=== PATIENT | female | born 1990 | race Caucasian/White ===

== ENCOUNTER 2018-10-27 08:29 | Emergency (ER) | payer MEDICAID ==
--- NOTE | 2018-10-27 10:07 | EDM.PDOC ---
ED HPI GENERAL MEDICAL PROBLEM - General Chief Complaint: PRN PHYSICAL THERAPIST Problem Stated Complaint: WORRIED ABOUT MISCARRIAGE - SPOTTING Time Seen by Provider: 10/27/18 09:18 Source of Information: Reports: Patient History Limitations: Reports: No Limitations - History of Present Illness INITIAL COMMENTS - FREE TEXT/NARRATIVE: Patient presents with abdominal cramping and vaginal bleeding. She is 12 weeks and had an US at 10 weeks confirming intrauterine . Sometime during the night she was up to the bathroom and had cramping that lasted about two minutes. She was able to fall asleep and this morning passed some blood as well as 5 nickel-sized clots of blood. She isn't sure how much there was in the toilet. She says she continues to bleed a little. There is no more cramping or abdominal pain. - Related Data Allergies Allergy/AdvReac Type Severity Reaction Status Date / Time Sulfa (Sulfonamide Allergy Hives Verified 10/27/18 08:57 Antibiotics) Social & Family History - Tobacco Use Smoking Status *Q: Former Smoker Years of Tobacco use: 8 Used Tobacco, but Quit: Yes Month/Year Tobacco Last Used: 07/2019 - Caffeine Use Caffeine Use: Reports: None - Recreational Drug Use Recreational Drug Use: No ED ROS GENERAL - Review of Systems Review Of Systems: See Below Constitutional: Denies: Fever, Chills HEENT: Reports: No Symptoms Respiratory: Denies: Shortness of Breath, Cough Cardiovascular: Denies: Chest Pain, Lightheadedness, Syncope Endocrine: Reports: No Symptoms GI/Abdominal: Denies: Abdominal Pain, Diarrhea, Vomiting : Denies: Dysuria, Flank Pain Musculoskeletal: Reports: No Symptoms Skin: Denies: Cyanosis, Jaundice, Mottled, Pallor, Diaphoresis Neurological: Denies: Confusion, Seizure, Syncope Psychiatric: Denies: Agitation, Anxiety, Confusion Hematologic/Lymphatic: Denies: Anemia ED EXAM - Physical Exam Exam: See Below Exam Limited By: No Limitations General Appearance: Alert, WD/WN, No Apparent Distress Eye Exam: Bilateral Eye: EOMI, Normal Inspection, PERRL Ears: Normal External Exam, Hearing Grossly Normal Nose: Normal Inspection, No Blood Throat/Mouth: Normal Inspection, Normal Lips, Normal Voice, No Airway Compromise Head: Atraumatic, Normocephalic Neck: Normal Inspection, Full Range of Motion Respiratory/Chest: No Respiratory Distress, Lungs Clear, Normal Breath Sounds, No Accessory Muscle Use Cardiovascular: Regular Rate, Rhythm, No Edema, No Murmur GI/Abdominal Exam: Normal Bowel Sounds, Soft, Non-Tender, No Organomegaly, Other (consistent with stated gestation) (Female) Exam: Normal External Exam, Normal Speculum Exam (The vaginal exam was performed by Dr. 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 No: Cervical Dilatation, Cervical Discharge, Products of Conception, Tissue Present in Cervix/Vagina Back Exam: Normal Inspection, Full Range of Motion. No: CVA Tenderness (L), CVA Tenderness (R) Extremities: Normal Inspection, Normal Range of Motion Neurological: Alert, Oriented, Normal Cognition, No Motor/Sensory Deficits Psychiatric: Normal Affect, Normal Mood Skin Exam: Warm, Dry, Intact, Normal Color, No Rash Course - Vital Signs Last Recorded V/S: Last Vital Signs Temp 98.1 F 10/27/18 08:45 Pulse 86 10/27/18 08:45 Resp 16 10/27/18 08:45 BP 128/74 10/27/18 08:45 Pulse Ox 98 10/27/18 08:45 - Orders/Labs/Meds Orders: Active Orders 24 hr Category Date Time Status TYPE AND SCREEN [BBK] Stat Lab 10/27/18 09:55 Ordered Labs: Laboratory Tests 10/27/18 10/27/18 Range/Units 09:05 10:05 WBC 5.62 (5.00-10.00) 10^3/uL RBC 4.61 (3.80-5.50) 10^6/uL Hgb 12.9 (12.0-16.0) g/dL Hct 35.4 L (37.0-47.0) % MCV 76.8 L (82.0-92.0) fL MCH 28.0 (27.0-31.0) pg MCHC 36.4 H (32.0-36.0) g/dL RDW 14.2 (11.5-14.5) % Plt Count 264 (150-400) 10^3/uL MPV 9.2 (7.4-10.4) fL Immature Gran % (Auto) 0.2 (0.0-5.0) % Neut % (Auto) 59.0 (50.0-70.0) % Lymph % (Auto) 32.0 (20.0-40.0) % [place] % (Auto) 8.0 (2.0-8.0) % Eos % (Auto) 0.4 L (1.0-3.0) % Baso % (Auto) 0.4 (0.0-1.0) % Immature Gran # (Auto) 0.01 (0.00-0.50) 10^3/uL Neut # (Auto) 3.32 (2.50-7.00) 10^3/uL Lymph # (Auto) 1.80 (1.00-4.00) 10^3/uL [place] # (Auto) 0.45 (0.10-0.80) 10^3/uL Eos # (Auto) 0.02 L (0.10-0.30) 10^3/uL Baso # (Auto) 0.02 (0.00-0.10) 10^3/uL Specimen Type Urinvoid Urine Color Yellow (YELLOW) Urine Appearance Slightly cloudy H (CLEAR) Urine pH 7.0 (5.0-9.0) Ur Specific [place] 1.025 (1.005-1.030) Urine Protein Negative (NEGATIVE) mg/dL Urine Glucose (UA) Negative (NEGATIVE) mg/dL Urine Ketones Negative (NEGATIVE) mg/dL Urine Occult Blood Moderate H (NEGATIVE) Urine Nitrite Negative (NEGATIVE) Urine Bilirubin Negative (NEGATIVE) Urine Urobilinogen 0.2 (0.2-1.0) E.U./dL Ur Leukocyte Esterase Negative (NEGATIVE) Urine RBC 5-10 H (0-5) /HPF Urine WBC 10-20 H (0-5) /HPF Ur Epithelial Cells Moderate H /LPF Amorphous Sediment Many H (0/HPF) /HPF Urine Bacteria Few (NONE TO FEW) /HPF - Re-Assessments/Exams Free Text/Narrative Re-Assessment/Exam: 10/27/18 10:52 Discussed findings with patient and will need to get an ultrasound. Discussed with Dr. Hickman who is in hospital for inpatient rounds. She knows the patient well and came to see her in ER and performed vaginal exam. She wants patient to go to [facility] for US and Rhogam injection since she is A negative blood type and also wants type and screen performed now in ER. She will see patient at the clinic following the US. Patient informed of this plan and is discharged in stable condition. Departure - Departure Time of Disposition: 10:07 Disposition: Home, Self-Care 01 Condition: Good Clinical Impression: Vaginal bleeding in patient at less than 20 weeks gestation - Discharge Information Referrals: Jocelyne Garcia PA-C [Primary Care Provider] - Forms: ED Department Discharge Additional Instructions: 1. Go to [facility] for Ultrasound and Rhogam injection. 2. Dr. Hickman will see you there also. - My Orders Last 24 Hours: My Active Orders 10/27/18 09:55 TYPE AND SCREEN [BBK] Stat - Assessment/Plan Last 24 Hours: My Active Orders 10/27/18 09:55 TYPE AND SCREEN [BBK] Stat
== END 2018-10-27 10:20 | disposition home or self-care (01) ==
LOC: KA.ED 08:29
DX: O20.8 Other hemorrhage in early pregnancy (principal); Z88.2 Allergy status to sulfonamides; Z87.891 Personal history of nicotine dependence; Z3A.10 10 weeks gestation of pregnancy
CPT/HCPCS: 36415; 81001; 85025; 86850; 86900; 86901; 99284